=== PATIENT | female | born 1960 | race African-American/Black ===

== ENCOUNTER 2016-02-20 17:44 | Emergency (ER) | payer MEDICARE ==
[2016-02-20 18:06] VITALS: PULSE 75; BMI 36.1
[2016-02-20 18:23] LABS: AUTOMATED BASOPHIL 0.7 % (0-2); AUTOMATED EOSINOPHIL 4.1 % (0-5); AUTOMATED LYMPH 36.8 % (17-44); AUTOMATED MONOCYTE 7.8 % (3-10); AUTOMATED NEUTROPHIL 50.6 % (45-76); MPV 11.2 fL (7.4-10.4)
[2016-02-20 18:30] LABS: BLOOD UREA NITROGEN 21 MG/DL (7-17); CALCULATED OSMOLALITY 280 MOs/Kg (270-290); CHLORIDE 107 mEq/L (98-107); GLUCOSE 99 MG/DL (70-99); SODIUM LEVEL 144 mEq/L (137-146); TOTAL PROTEIN 8.2 G/DL (6.3-8.2)
[2016-02-20 18:36] LABS: LEUKOCYTES/URINE NEG (NEGATIVE); NITRITE/URINE NEG (NEGATIVE); URINE OCCULT BLOOD 1+ (NEG/TRACE); WBC/URINE 0-2 (0-5)
[2016-02-20 18:38] LABS: PARTIAL THROMB. TIME 30.8 SEC (22-35)
[2016-02-20] MEDS ORDERED: OXYCODONE HCL 5 MG TABLET PO ONE (20:02)
--- NOTE | 2016-02-20 20:04 | EDPRACDOC ---
- General Information Chief Complaint: Flu-Like Symptoms Stated Complaint: PNEUMONIA Time Seen by Provider: 02/20/16 19:57 Information Source: Patient Mode Of Arrival: Car Home Medications: Home Medications Gabapentin [Neurontin] 600 mg PO TID 10/08/14 Hydroxychloroquine Sulfate [Plaquenil] 200 mg PO QID 10/08/14 Pantoprazole Sodium [Protonix] 40 mg PO BID 10/08/14 Pilocarpine HCl [Salagen] 5 mg PO BID 10/08/14 Topiramate [Topamax] 100 mg PO BID 10/08/14 Zolpidem Tartrate [Ambien] 10 mg PO QHS 10/08/14 Azithromycin [Zithromax] 0 mg PO DAILY #6 tablet 02/20/16 Hydrocodone Bit/Homatropine [Hycodan Syrup] 5 ml PO Q6 PRN #120 syrup 02/20/16 Allergies/Adverse Reactions: Allergies Allergy/AdvReac Type Severity Reaction Status Date / Time acetaminophen [From Tylenol] Allergy Unknown Verified 10/08/14 15:12 aspirin Allergy Unknown Verified 10/08/14 15:12 naproxen sodium [From Aleve] Allergy Unknown Verified 10/08/14 15:12 Penicillins Allergy Hives* Verified 10/08/14 10:05 sulfamethoxazole Allergy Unknown Verified 10/08/14 15:12 [From Bactrim] trimethoprim [From Bactrim] Allergy Unknown Verified 10/08/14 15:12 - History 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 Current Symptoms: Reports: Cough, Headache, Nasal Symptoms, Sore Throat, Myalgia. Denies: Earache, Fever, Nausea, Vomiting Shortness of Breath: None Cough: Reports: Productive, Bloody, Green Rhinorrhea: Reports: Bloody, Green Ear Symptoms: Reports: None Fever Severity/Quality: Reports: no fever Oral Intake: Normal Urinary Output: Normal Relevant History of: COPD Associated Signs & Symptoms:: Reports: Cough, Headache, Nasal Symptoms, Sore Throat, Myalgia. Denies: Earache, Fever, Nausea, Vomiting, Diarrhea, Rash, Pain with head movement, AMS ED Past Medical History - History Reviewed Yes Nurses notes reviewed and agree except as marked - Patient Medical History Neurological History: Reports: Cerebrovascular Accident (x2), Seizures, Migraine Cardiac History: Reports: Hypertension, Syncope Respiratory History: Reports: Asthma, COPD, Pneumonia GI/ History: Reports: Gastroesophageal Reflux Musculoskeletal History: Reports: Osteoarthritis Psychological History: Reports: Anxiety, Schizophrenia, Bipolar Disorder. Denies: Depression Systemic History: Reports: Cancer (BREAST,THROAT,CERVICAL, COLON), Diabetes, Lupus Surgical History: Reports: Hysterectomy, Other (breast biopsy, throat x 2 , shoulder,) - Family Medical History Reports: Hypertension, Diabetes, Cancer - Social Medical History Smoking Status: Heavy tobacco smoker (5 or more cigarettes/day or daily pipe/ cigar) ETOH: None Substance Abuse: None EDM Review of Systems - Review of Systems Constitutional: negative: Chills, Fever Eyes: negative: Blurred Vision, Double Vision Ears: negative: Drainage, Pain Throat: Pain Nose: Congestion, Discharge Respiratory: Cough. negative: Shortness of Breath, Wheezing Cardiovascular: negative: Chest Pain, Palpitations Gastrointestinal: negative: Diarrhea, Nausea, Pain, Vomiting Genitourinary: negative: Dysuria, Frequency Neurological: Headache. negative: Dizziness, Numbness, Weakness Musculoskeletal: No Symptoms Reported Integumentary: No Symptoms Reported - Physical Exam Constitutional: Alert (Awake), No apparent distress Oriented to: Time, Person, Place Last recorded Vital Signs: Last Vital Signs Temp 98.0 F 02/20/16 18:01 Pulse 75 02/20/16 18:01 Resp 20 02/20/16 18:01 BP 173/98 02/20/16 18:01 Pulse Ox 99 02/20/16 18:01 Oxygen Pulse Oxygen Saturation 99 O2 Device Room Air Oxygen Flow Rate Fraction of Inspired Oxygen ( FIO2) - HEENT Head: Normal ( normocephalic) Eye Exam: Normal (PERRL, EOMI, Sclera white) Oropharynx: Normal (Pharynx:Moist without exudate,Gums-no swelling) Tympanic Membrane: Normal ENT EAC: Normal TMJ: Normal Nose: No Symptoms Reported (septum midline) Neck: Normal (FROM, trachea at midline) - Respiratory/Cardiovascular Respiratory: Normal - CTA (BBS clear to auscultation without adventitious sounds ) Cardiovascular: Normal (RRR without murmur, gallop or rub) - GI Auscultation: Normal (NABS) Palpation: Normal (Soft,No rebound or guarding, non distended) Tenderness: Non tender Sepulveda's Sign: Negative - Musculoskeletal Back: Normal (Non-Tender) Extremities: Normal (Normal tone, Pulses 2+ No cyanosis or edema, FROM) - Integumentary Skin: Normal, Warm, Dry Lymphatics: Normal (no adenopathy) - Neurologic Memory Impaired: Normal Motor Function: Normal (Normal tone, Pulses 2+ No cyanosis or edema, FROM) Cranial Nerve: Normal (CN II-X11 intact sensation, strength 5/5) Cerebellar: Normal Mood Description: Normal Perception: Normal - Differential Diagnosis Bronchitis, Otitis Media, Pneumonia, Sinusitis - Results 02/20/16 18:12 02/20/16 18:12 WBC 5.6 xk/uL (3.8-10.8) 02/20/16 18:12 RBC 5.33 xM/uL (4.20-5.40) 02/20/16 18:12 Hgb 13.7 g/dL (12.0-16.0) 02/20/16 18:12 Hct 43.6 % (36-47) 02/20/16 18:12 MCV 82 fL (81-99) 02/20/16 18:12 MCH 25.6 pg (27-32) L 02/20/16 18:12 MCHC 31.4 g/dl (33-36) L 02/20/16 18:12 RDW 14.7 % (11.5-14.5) H 02/20/16 18:12 Plt Count 210 xk/uL (130-400) 02/20/16 18:12 MPV 11.2 fL (7.4-10.4) H 02/20/16 18:12 Neut % (Auto) 50.6 % (45-76) 02/20/16 18:12 Lymph % (Auto) 36.8 % (17-44) 02/20/16 18:12 [place] % (Auto) 7.8 % (3-10) 02/20/16 18:12 Eos % (Auto) 4.1 % (0-5) 02/20/16 18:12 Baso % (Auto) 0.7 % (0-2) 02/20/16 18:12 Absolute Neuts (auto) 2.80 xk/uL (1.7-8.2) 02/20/16 18:12 Absolute Lymphs (auto) 2.02 xk/uL (0.65-4.75) 02/20/16 18:12 PT 10.3 SEC (9.2-11.2) 02/20/16 18:12 INR 1.0 02/20/16 18:12 APTT 30.8 SEC (22-35) 02/20/16 18:12 Sodium 144 mEq/L (137-146) 02/20/16 18:12 Potassium 3.8 mEq/L (3.5-5.1) 02/20/16 18:12 Chloride 107 mEq/L (98-107) 02/20/16 18:12 Carbon Dioxide 24 mMOL/L (22-33) 02/20/16 18:12 Anion Gap 17 mEq/L (8-16) H 02/20/16 18:12 BUN 21 MG/DL (7-17) H 02/20/16 18:12 Creatinine 1.00 MG/DL (0.52-1.04) 02/20/16 18:12 Estimated GFR (MDRD) > 60 mL/min (>=60) 02/20/16 18:12 Glucose 99 MG/DL (70-99) 02/20/16 18:12 Calculated Osmolality 280 MOs/Kg (270-290) 02/20/16 18:12 Calcium 9.0 MG/DL (8.4-10.2) 02/20/16 18:12 Total Bilirubin 0.5 MG/DL (0.2-1.3) 02/20/16 18:12 AST 25 IU/L (14-36) 02/20/16 18:12 ALT 27 IU/L (9-52) 02/20/16 18:12 Alkaline Phosphatase 98 IU/L (38-126) 02/20/16 18:12 Troponin I < 0.01 ng/mL (<.04) 02/20/16 18:12 Tlp-Y-Pbchyxymjle Pept 137 pg/mL (0-900) 02/20/16 18:12 Total Protein 8.2 G/DL (6.3-8.2) 02/20/16 18:12 Albumin 4.1 G/DL (3.5-5.0) 02/20/16 18:12 Urine Color Yellow 02/20/16 18:12 Urine Clarity Sl cldy 02/20/16 18:12 Urine pH 6.0 (5.0-8.0) 02/20/16 18:12 Ur Specific [place] 1.025 (1.003-1.035) 02/20/16 18:12 Urine Protein 2+ (NEG/TRACE) H 02/20/16 18:12 Urine Glucose (UA) Neg (NEGATIVE) 02/20/16 18:12 Urine Ketones Neg (NEGATIVE) 02/20/16 18:12 Urine Occult Blood 1+ (NEG/TRACE) H 02/20/16 18:12 Urine Nitrite Neg (NEGATIVE) 02/20/16 18:12 Urine Bilirubin Neg (NEGATIVE) 02/20/16 18:12 Urine Urobilinogen 2 MG/DL (0-1) H 02/20/16 18:12 Ur Leukocyte Esterase Neg (NEGATIVE) 02/20/16 18:12 Urine RBC 2-5 (0-5) 02/20/16 18:12 Urine WBC 0-2 (0-5) 02/20/16 18:12 Ur Epithelial Cells 1+ 02/20/16 18:12 Urine Bacteria Few (NEG/FEW) 02/20/16 18:12 Hyaline Casts 0-2 (0-2) 02/20/16 18:12 Urine Mucus Sm amt (NEG/OCC) 02/20/16 18:12 Lab Results 02/20/16 02/20/16 02/20/16 18:12 18:12 18:12 WBC 5.6 RBC 5.33 Hgb 13.7 Hct 43.6 MCV 82 MCH 25.6 L MCHC 31.4 L RDW 14.7 H Plt Count 210 MPV 11.2 H Neut % (Auto) 50.6 Lymph % (Auto) 36.8 [place] % (Auto) 7.8 Eos % (Auto) 4.1 Baso % (Auto) 0.7 Absolute Neuts (auto) 2.80 Absolute Lymphs (auto) 2.02 PT 10.3 INR 1.0 APTT 30.8 Sodium Potassium Chloride Carbon Dioxide Anion Gap BUN Creatinine Estimated GFR (MDRD) Glucose Calculated Osmolality Calcium Total Bilirubin AST ALT Alkaline Phosphatase Troponin I Fnf-Z-Aaevlmnvgsn Pept Total Protein Albumin Urine Color Yellow Urine Clarity Sl cldy Urine pH 6.0 Ur Specific [place] 1.025 Urine Protein 2+ H Urine Glucose (UA) Neg Urine Ketones Neg Urine Occult Blood 1+ H Urine Nitrite Neg Urine Bilirubin Neg Urine Urobilinogen 2 H Ur Leukocyte Esterase Neg Urine RBC 2-5 Urine WBC 0-2 Ur Epithelial Cells 1+ Urine Bacteria Few Hyaline Casts 0-2 Urine Mucus Sm amt 02/20/16 18:12 WBC RBC Hgb Hct MCV MCH MCHC RDW Plt Count MPV Neut % (Auto) Lymph % (Auto) [place] % (Auto) Eos % (Auto) Baso % (Auto) Absolute Neuts (auto) Absolute Lymphs (auto) PT INR APTT Sodium 144 Potassium 3.8 Chloride 107 Carbon Dioxide 24 Anion Gap 17 H BUN 21 H Creatinine 1.00 Estimated GFR (MDRD) > 60 Glucose 99 Calculated Osmolality 280 Calcium 9.0 Total Bilirubin 0.5 AST 25 ALT 27 Alkaline Phosphatase 98 Troponin I < 0.01 Ucb-V-Hjpywadoojs Pept 137 Total Protein 8.2 Albumin 4.1 Urine Color Urine Clarity Urine pH Ur Specific [place] Urine Protein Urine Glucose (UA) Urine Ketones Urine Occult Blood Urine Nitrite Urine Bilirubin Urine Urobilinogen Ur Leukocyte Esterase Urine RBC Urine WBC Ur Epithelial Cells Urine Bacteria Hyaline Casts Urine Mucus - EKG EKG #1 EKG Time: 20:14 -: Yes EKG interpreted by me Rate: bpm: 65 [place]: Normal Rhythm: NSR Block: None Hypertrophy: None ST: Nonsp Comparison: 10/08/14 (NO CHANGE) - Diagnostic Imaging LEFT HIP Image interpreted by: Radiologist LEFT HIP (WITH PELVIS) 2-3 VIEWS COMPARISON: None. FINDINGS: Both hips are normally located. Mild to moderate degenerative changes bilaterally. No acute fracture or plain film evidence of avascular necrosis. The pubic symphysis and SI joints are intact. Sclerotic lesion in the left iliac bone could be a benign bone island. Recommend correlation with any history of malignancy such as breast cancer. IMPRESSION: Mild to moderate hip joint degenerative changes bilaterally but no acute bony findings or plain film evidence of avascular necrosis. Sclerotic lesion in the left iliac bone is most likely a benign bone island. Recommend correlation with any malignancy history. CXR Image interpreted by: Radiologist CHEST 2 VIEW COMPARISON: 10/12/2014 FINDINGS: The cardiomediastinal contours are normal. The lungs are clear. The previous left upper lobe airspace opacity has resolved. Pulmonary vasculature is normal. No consolidation, pleural effusion, or pneumothorax. No acute osseous abnormalities are seen. IMPRESSION: No acute pulmonary process. Decision Time to Discharge: 21:06 - Departure Disposition: Home Condition: Stable Final Diagnosis: Acute sinusitis Degenerative joint disease of left hip Qualifiers: Osteoarthritis type: unspecified Qualified Code(s): M16.12 - Unilateral primary osteoarthritis, left hip Instructions: Sinusitis (ED) Education/Counseling Given To: Patient Education/Counseling Given Regarding: Diagnosis, Treatment, Prognosis Referrals: None,No Provider [Primary Care Provider] - One Week Prescriptions: Azithromycin [Zithromax] 0 mg PO DAILY #6 tablet Hydrocodone Bit/Homatropine [Hycodan Syrup] 5 ml PO Q6 PRN #120 syrup PRN Reason: Cough Additional Instructions: CONTINUE YOUR USUAL MEDICATIONS BEFORE. RETURN TO THE ED FOR ANY WORSENING SYMPTOMS OR CONCERNS.
--- NOTE | 2016-02-20 20:44 | DIRPT ---
CLINICAL DATA: Cough, shortness of breath and body aches for 11 days. EXAM: CHEST 2 VIEW COMPARISON: 10/12/2014 FINDINGS: The cardiomediastinal contours are normal. The lungs are clear. The previous left upper lobe airspace opacity has resolved. Pulmonary vasculature is normal. No consolidation, pleural effusion, or pneumothorax. No acute osseous abnormalities are seen. IMPRESSION: No acute pulmonary process. Electronically Signed By: Julita Brownlee M.D. On: 02/20/2016 20:41
--- NOTE | 2016-02-20 20:51 | DIRPT ---
CLINICAL DATA: One week history of left hip pain. EXAM: LEFT HIP (WITH PELVIS) 2-3 VIEWS COMPARISON: None. FINDINGS: Both hips are normally located. Mild to moderate degenerative changes bilaterally. No acute fracture or plain film evidence of avascular necrosis. The pubic symphysis and SI joints are intact. Sclerotic lesion in the left iliac bone could be a benign bone island. Recommend correlation with any history of malignancy such as breast cancer. IMPRESSION: Mild to moderate hip joint degenerative changes bilaterally but no acute bony findings or plain film evidence of avascular necrosis. Sclerotic lesion in the left iliac bone is most likely a benign bone island. Recommend correlation with any malignancy history. Electronically Signed By: Jen Cooper M.D. On: 02/20/2016 20:48
[2016-02-20 21:30] VITALS: BP 195/100; TEMP 98.6
== END 2016-02-20 21:25 | disposition home or self-care (01) ==
LOC: ED 17:44
DX: J01.90 Acute sinusitis, unspecified (principal); M16.12 Unilateral primary osteoarthritis, left hip
CPT/HCPCS: 36415; 71020; 73502; 80053; 81001; 83880; 84484; 85025; 85610; 85730; 93005; 99283; A9270; J3490